=== PATIENT | male | born 1985 | race Two or more races ===

== ENCOUNTER 2024-10-08 11:02 | Emergency (ER) | payer MEDICAID, OTHER ==
[~2024-10-08] VITALS: Ht 170.2 cm; Wt 76.6 kg
[2024-10-08] MEDS: LOPERAMIDE HCL 2 MG CAP/TAB PO ONE (14:02)
[2024-10-08] MEDS: KETOROLAC TROMETH 60MG/2ML VIAL IM ONE (14:03)
--- NOTE | 2024-10-08 14:09 | ED.PDOC ---
SOB-HPI HPI Comments 38y M who presents to the ED for chief complaint of flu-like symptoms. Pt states he has been having cough, fever, congestion, rhinorrhea, headache and diarrhea for the past 6 days. Pt states he lives by himself and denies any recent sick contacts. Pt in the ED, has stable vitals with noted temp of 97.9F, heart rate 90, and 02 sat of 98% on room air. Pt otherwise has no noted respiratory distress and otherwise denies chest pain, shortness of breath, dizziness, or any associated symptoms. Pt otherwise denies any past medical history and denies having taken anything for his medications. Pt otherwise denies any other symptoms at this time. Chief Complaint: Flu like Time Seen by MD: 14:04 Primary Care Provider: DENIES Reviewed notes: Medications, Allergies Information Source: Patient Mode of Arrival: Ambulatory Brought in by: self Past Medical History PAST MEDICAL HISTORY: Denies Surgical History: Denies all surgeries Family History Family History: Reviewed,noncontributory to illness Social History Smoker: Non-Smoker Alcohol: Denies ETOH Use Drugs: Denies Drug Use Lives In: Home Constitutional: reports: chills, fatigue; denies: diaphoresis, fever, malaise, sweats, weakness, others EENTM: reports: nose congestion, throat pain; denies: blurred vision, double vision, ear bleeding, ear discharge, ear drainage, ear pain, ear ringing, eye pain, eye redness, hearing loss, mouth pain, mouth swelling, nasal discharge, nose bleeding, nose pain, photophobia, tearing, throat swelling, voice changes, others Respiratory: denies: cough, hemoptysis, orthopnea, SOB at rest, shortness of breath, SOB with excertion, stridor, wheezing, others Cardiovascular: denies: chest pain, dizzy spells, diaphoresis, Dyspnea on exertion, edema, irregular heart beat, left arm pain, lightheadedness, palpitations, PND, syncope, others Gastrointestinal: denies: abdomen distended, abdominal pain, blood streaked bowels, constipated, diarrhea, dysphagia, difficulty swallowing, hematemesis, melena, nausea, poor appetite, poor fluid intake, rectal bleeding, rectal pain, vomiting, others Genitourinary: denies: burning, dysuria, flank pain, frequency, hematuria, incontinence, penile discharge, penile sore, pain, testicle pain, testicle swelling, urgency, others Neurological: denies: dizziness, fainting, headache, left sided numbness, left sided weakness, numbness, paresthesia, pre-existing deficit, right sided numbness, right sided weakness, seizure, speech problems, tingling, tremors, weakness, others Musculoskeletal: denies: back pain, gout, joint pain, joint swelling, muscle pain, muscle stiffness, neck pain, others Integumetry: denies: bruises, change in color, change in hair/nails, dryness, laceration, lesions, lumps, rash, wounds, others Allergic/Immunocompromised: denies: Difficulty Healing, Frequent Infections, Hives, Itching, others Hematologic/Lymphatic: denies: anemia, blood clots, easy bleeding, easy bruising, swollen glands, others Endocrine: denies: excessive hunger, excessive sweating, excessive thirst, excessive urination, flushing, intolerance to cold, intolerance to heat, unexplained weight gain, unexplained weight loss, others Psychiatric: denies: anxiety, bipolar disorder, depression, hopeless, panic disorder, schizophrenia, sleepless, suicidal, others All Other Systems: Reviewed and Negative Physical Exam General Appearance: No Apparent Distress HEENT: PERRL/EOMI, Pharyngeal Erythema (No edema, exudate or uvular deviation) Neck: Full Range of Motion, Normal Inspection Respiratory: Lungs Clear, No Accessory Muscle Use, No Respiratory Distress, Normal Breath Sounds Cardiovascular: No Edema, No JVD, Regular Rate/Rhythm Breast Exam: Deferred Gastrointestinal: Non Tender, Soft Genitalia: Deferred Pelvic: Deferred Rectal: Deferred Extremities: Normal inspection, Normal range of motion, Non-tender, No pedal edema Neurologic: Alert (Oriented x4), Normal Affect, Normal Mood, Other (Ambulatory. No gross focal deficit.) Cerebellar Function: NOT DONE Reflexes: NOT DONE Skin: Dry, Normal Color, Warm Lymphatic: NOT DONE Was a procedure done? Was a procedure done?: No Differential Dx Differential Diagnosis: Bronchitis, Pneumonia, Pharyngitis, URI Comments viral syndrome, Influenza A and B, COVID, X-Ray, Labs, Meds, VS Vital Signs Date Time Temp Pulse Resp B/P (MAP) Pulse Ox O2 Delivery O2 Flow Rate FiO2 10/08/24 13:05 92 18 99 Room Air 10/08/24 13:05 97.8 92 18 110/76 (87) 99 97.8 10/08/24 11:28 18 98 Room Air* 0 21 10/08/24 11:20 97.9 90 18 111/79 (90) 98 Lab Test 10/08/24 14:04 Range/Units Influenza Type A Antigen Negative Negative Influenza Type B Antigen Negative Negative SARS-CoV-2 Antigen (Rapid) Negative NEGATIVE Group A Streptococcus Rapid Negative Current Medications Medications (Trade) Dose Ordered Sig/Hayley Route Start Time Stop Time Status Last Admin Ketorolac Tromethamine (Toradol Injection) 60 mg ONCE ONCE IM 10/08/24 14:00 10/08/24 14:01 DC 10/08/24 14:03 Loperamide HCl (Imodium Capsule) 4 mg ONCE ONCE PO 10/08/24 14:00 10/08/24 14:01 DC 10/08/24 14:02 [place] [id number] Ph: [phone] DIAGNOSTIC IMAGING Diagnostic Imaging Report : [id number] Signed PATIENT: KULDIP VALERO ACCT: [id number] UNIT: [id number] : 1985 LOC: ER ROOM / BED: / AGE / SEX: 38 / M ADM STATUS: REG ER SERVICE [id number] ORDERING PHYSICIAN: MALENA JOLLY MD PROCEDURE(s): CXR1 - CHEST XRAY 1 VIEW REASON: cough/congestion ORDER NUMBER(s): [id number], ACCESSION NUMBER(s): [id number] CHEST RADIOGRAPH Indication: cough/congestion Technique: Single frontal view of the chest was obtained COMPARISON: None FINDINGS: Lines and Tubes: None Lungs: Clear Pleura: No effusion. No pneumothorax. Cardiomediastinal contours: Unremarkable Bones: Unremarkable IMPRESSION: 1. No acute disease. ATED BY: DEL ESTRELLA MD DICTATED DATE/TIME: 10/08/24 142 SIGNED BY: DEL ESTRELLA MD SIGNED DATE/TIME: 10/08/24 142 CC: X-Ray, Labs, Meds, VS Comment 38-year-old male with no significant past medical history complaining of flu- like symptoms for the past 6 days Vitals unremarkable Exam remarkable for pharyngeal erythema Rhythm strip independently interpreted by me: Sinus rhythm, rate 90, no ectopy. Chest x-ray unremarkable, influenza, COVID and strep swabs negative Patient treated with the following in the ED: Toradol 60 mg IM, Imodium 4 mg p.o. On re-evaluation, patient states sore throat has improved. Vitals are stable. Patient's symptoms are likely due to a viral syndrome, however I will prescribe oral antibiotics for treatment of possible bacterial respiratory infection. Patient stable for discharge with close follow-up with his primary physician. Rx Levaquin, Mucinex, ibuprofen, imodium Time of 1ST Reevaluation: 14:35 Reevaluation 1ST: Unchanged Patient Education/Counseling: Diagnosis, Treatment Family Education/Counseling: No Family Present Additional Information -Reviewed patient's previous visit(s): - The following tests were ordered, and results were reviewed by me: influenza A and B, covid test, rapid strep, chest x-ray - Additional information was gathered from interviewing the following independent Historian: pt - I reviewed and agreed with the following test results read by other provider: radiologist - I discussed treatments and results with medical personnel and: patient Comprehensive systems review obtained and negative except for what is stated in the HPI. Departure 1 Departure Time of Disposition: 16:21 Impression: Primary Impression: Diarrhea Qualified Codes: R19.7 - Diarrhea, unspecified Additional Impression: Bronchitis Disposition: HOME / SELF CARE / HOMELESS Condition: Stable Additional Instructions: Your test for influenza, COVID and strep were negative. Your chest x-ray was normal. Your symptoms are possibly due to a viral infection. As a precaution, I have prescribed antibiotics to treat a possible bacterial respiratory illness. I have prescribed other medications to treat your symptoms. Follow-up with your primary doctor in 1-2 days. Return to ER for persistent or worsening symptoms. e-Prescriptions Ibuprofen Micronized (Ibuprofen) 600 Mg Tab 800 MG PO Q8HP PRN, #30 TAB prn pain or fever, take with food Prov: MALENA JOLLY MD 10/08/24 Loperamide HCl (Imodium A-D) 2 Mg Cap 2 MG PO Q6HP PRN, #20 CAP prn diarrhea Prov: MALENA JOLLY MD 10/08/24 Guaifenesin (Mucinex) 600 Mg Tab 1 TAB PO BID PRN, #20 TAB prn cough/congestion Prov: MALENA JOLLY MD 10/08/24 Levofloxacin Hemihydrate (LEVOFLOXACIN) 750 Mg Tab 1 TAB PO DAILY for 7 Days, #7 TAB Prov: MALENA JOLLY MD 10/08/24 Critical Care Note Critical Care Time?: No Stability Stability form required: No Heart Score Heart Score: Heart Score Response (Comments) Value History N/A 0 EKG N/A 0 Age N/A 0 Risk Factors N/A 0 Troponin N/A 0 Total 0 I personally scribed for MALENA JOLLY MD ([email or web address]) on 10/08/24 at 14:09. [facility] ([facility] I personally scribed for MALENA JOLLY MD ([email or web address]) on 10/08/24 at 14:35. Electronically submitted by Estuardo Tan ([facility]). MALENA JOLLY MD Oct 08, 2024 14:09
--- NOTE | 2024-10-08 14:24 | DVH ---
CHEST RADIOGRAPH Indication: cough/congestion Technique: Single frontal view of the chest was obtained COMPARISON: None FINDINGS: Lines and Tubes: None Lungs: Clear Pleura: No effusion. No pneumothorax. Cardiomediastinal contours: Unremarkable Bones: Unremarkable IMPRESSION: 1. No acute disease.
[2024-10-08 15:33] LABS: Rapid Strep A Screen-Throat Negative
[2024-10-08 15:35] LABS: COVID19 ANTIGEN SOFIA FIA NEGATIVE (NEGATIVE); Rapid Influenza A Negative (Negative); Rapid Influenza B Negative (Negative)
[2024-10-08] MEDS ORDERED: GUAI600T78 PO (16:25)
[2024-10-08] MEDS ORDERED: LOPE7.5C PO (16:25)
[2024-10-08] MEDS ORDERED: IBUP1TAB5 PO (16:25)
[2024-10-08] MEDS ORDERED: LEVO750T40 PO (16:25)
[2024-10-08 16:57] VITALS: BP 130/80; PULSE 89; RESP 16; TEMP 97.7; O2SAT 97
== END 2024-10-08 16:58 | disposition home or self-care (01) ==
LOC: ER 11:02
DX: J40 Bronchitis, not specified as acute or chronic (principal); R19.7 Diarrhea, unspecified; Z20.822 Contact with and (suspected) exposure to COVID-19
CPT/HCPCS: 36415; 71045; 87070; 87426; 87804; 87880; 96372; 99284; J1885